=== PATIENT | male | born 1980 | race Caucasian/White ===

== ENCOUNTER → 2019-11-22 | Emergency (ER) | payer OTHER ==
[~2019-11-22] VITALS: Ht 182.9 cm; Wt 97.5 kg
[~2019-11-22] MED LIST: PROSCAR5 MG
== END | disposition home or self-care (01) ==
LOC: ER 16:55
DX: S80.12XA Contusion of left lower leg, initial encounter (principal); W22.8XXA Striking against or struck by other objects, initial encounter; Y93.89 Activity, other specified; Y92.89 Other specified places as the place of occurrence of the external cause; Y99.8 Other external cause status